=== PATIENT | female | born 1970 | race Caucasian/White ===

== ENCOUNTER 2018-08-22 00:20 | Emergency (ER) | payer SELFPAY ==
[~2018-08-22] VITALS: Ht 165.1 cm; Wt 88.5 kg
--- NOTE | 2018-08-22 00:20 | NUR ---
PT CLARISSA HOANG, PREBOOK. TAKEN TO CHAIR E
[2018-08-22 00:28] VITALS: BP 169/107
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
--- NOTE | 2018-08-22 01:05 | NUR ---
Discharge instructions provided to Officer Marcio. Pt verbalized understanding. Prebook form and copy given to officer Marcio.
[2018-08-22 01:07] VITALS: BP 169/107
== END 2018-08-22 01:05 ==
LOC: MED 00:20
DX: Z04.1 Encounter for examination and observation following transport accident (principal); V89.2XXA Person injured in unspecified motor-vehicle accident, traffic, initial encounter; Y93.89 Activity, other specified; Y92.89 Other specified places as the place of occurrence of the external cause; Y99.8 Other external cause status
CPT/HCPCS: 99283